=== PATIENT | male | born 1930 | race Caucasian/White ===

== ENCOUNTER → 2016-12-17 | Outpatient (CLI) | payer MEDICARE, MEDICAID ==
[~2016-12-17] MED LIST: ACETAMINOPHEN-1 EAC1 ORAL
--- NOTE | 2016-12-17 15:39 | Diagnostic Imaging Report ---
Indication: Vomiting, chest pain abdominal pain. Fever Technique: Continuous helical transaxial imaging of the chest, abdomen and pelvis was obtained from the lung bases to the pubic symphysis during intravenous contrast administration. Multiple phases of enhancement obtained. Coronal 2-D reformats were also obtained. Study obtained in a Siemens sensation [address] Total Dose length Product (DLP): [address] Dose Index Volume (CTDIvol): 2.15, 8.1, 81.1, 19, 16.3 mGy Comparison: None Findings: CT chest: Reticular densities are demonstrated at the lung bases. There is no consolidation, pleural or pericardial effusion identified. Hiatal hernia is present. No adenopathy is appreciated. Aorta shows some mural calcification. Axilla. Clear. CT abdomen pelvis: Small stones are probably present in the gallbladder. The liver is low in attenuation consistent with fatty infiltration. There are multiple cysts within the kidneys bilaterally. The largest single cyst is about 4 cm in the lower pole the left kidney. Normal appendix is demonstrated. There are diverticula throughout colon but concentrated within the sigmoid and descending colon. There are no definite inflammatory changes to suggest acute diverticulitis. No evidence of bowel obstruction, free fluid or free air. Urinary bladder is mostly nondistended. The prostate gland is enlarged measuring about 5 x 6 x 6 cm. Impression: No evidence of pneumonia. Basilar densities in the lungs likely atelectasis and/or scarring. Small gallstones suspected. Fatty liver Multiple bilateral renal cysts. Extensive diverticulosis of the colon. No definite evidence of acute diverticulitis. Prostate hypertrophy. The CT scanner at [facility] is accredited by the [employer] and the scans are performed using dose optimization techniques as appropriate to a performed exam including Automatic Exposure control.
== END | disposition home or self-care (01) ==
LOC: CAT 09:11
DX: R50.9 Fever, unspecified (principal); K52.9 Noninfective gastroenteritis and colitis, unspecified; R10.32 Left lower quadrant pain; K80.80 Other cholelithiasis without obstruction; K76.0 Fatty (change of) liver, not elsewhere classified; N28.1 Cyst of kidney, acquired; K57.90 Diverticulosis of intestine, part unspecified, without perforation or abscess without bleeding; N40.0 Benign prostatic hyperplasia without lower urinary tract symptoms
CPT/HCPCS: 71260; 74177; Q9967

== ENCOUNTER → 2017-06-16 | Outpatient (CLI) | payer MEDICARE, MEDICAID | END | disposition home or self-care (01) | LOC: MRI 09:01 | DX: M54.2 Cervicalgia (principal); M25.511 Pain in right shoulder; M25.521 Pain in right elbow ==

== ENCOUNTER 2017-12-29 11:59 | Inpatient (IN) | payer MEDICARE, MEDICAID ==
[~2017-12-29] VITALS: Ht 165.1 cm; Wt 75.1 kg
[2017-12-29 12:20] VITALS: BP 104/64
[2017-12-29] MEDS ORDERED: Pantoprazole 80 MG in NS 250 ML IV ONE (12:30)
[2017-12-29] MEDS ORDERED: Pantoprazole Inj IV ONE (12:30)
[2017-12-29 12:48] LABS: EOSINOPHILS % (AUTO) 2.7 % (0.0-3.0); HEMATOCRIT 41.2 % (42.0-52.0); LYMPHOCYTES % (AUTO) 28.6 % (20.0-45.0); MEAN CORPUSCULAR VOLUME 88 FL (80-99); MONOCYTES % (AUTO) 6.1 % (1.0-10.0); NEUTROPHILS % (AUTO) 61.6 % (45.0-75.0); PLATELET COUNT 225 K/UL (150-450); RED BLOOD COUNT 4.68 M/UL (4.70-6.10)
[2017-12-29 13:05] LABS: INR 1.2 (0.9-1.1)
[2017-12-29 13:08] LABS: ANION GAP 8 mmol/L (5-15); BLOOD UREA NITROGEN 19 mg/dL (7-18); CALCIUM 8.9 MG/DL (8.5-10.1); CARBON DIOXIDE 26 MMOL/L (21-32); CHLORIDE 107 MMOL/L (98-107); CREATININE 1.3 MG/DL (0.55-1.30); POTASSIUM 3.9 MMOL/L (3.5-5.1); SODIUM 141 MMOL/L (136-145)
[2017-12-29 13:22] LABS: ALANINE AMINOTRANSFERASE 22 U/L (12-78); ALBUMIN 3.8 G/DL (3.4-5.0); ALBUMIN/GLOBULIN RATIO 1.1 (1.0-2.7); ALKALINE PHOSPHATASE 60 U/L (46-116); ASPARTATE AMINO TRANSFERASE 17 U/L (15-37); BILIRUBIN,TOTAL 0.5 MG/DL (0.2-1.0); CKMB 2.7 NG/ML (0.0-3.6); CREATINE KINASE 123 U/L (26-308)
--- NOTE | 2017-12-29 13:29 | Emergency Room Report ---
History of Present Illness General Chief Complaint: Gastrointestinal Bleed Source: Patient, Medical Record Present Illness HPI This patient presents at the request of his primary care physician. The patient states that he has had black colored stool for the past one week. He states that the stool is been black daily. He states he had this one time previously about 6 years ago. He was diagnosed with a duodenal ulcer. He denies epigastric pain or abdominal pain. He denies chest pain or shortness of breath. He is on xeralto for a heart arrhythmia. He denies any other anticoagulation medications. He has no other complaints. Allergies: Coded Allergies: NO KNOWN ALLERGIES (Unverified Allergy, Unknown, 12/13/14) Patient History Past Medical History: see triage record, HTN, AFib Past Surgical History: none Social History: Denies: smoking, alcohol use, drug use Reviewed Nursing Documentation: PMH: Agreed; PSxH: Agreed Nursing Documentation-PMH Past Medical History: No History, Except For Hx Cardiac Problems: Yes - arrhythmia Hx Hypertension: Yes Review of Systems All Other Systems: negative except mentioned in HPI Physical Exam Vital Signs Date Time Temp Pulse Resp B/P (MAP) Pulse Ox O2 Delivery O2 Flow Rate FiO2 12/29/17 12:04 98.1 93 18 104/64 98 Room Air 98.1 Sp02 EP Interpretation: reviewed, normal General Appearance: no apparent distress, alert, GCS 15, non-toxic Head: normocephalic, atraumatic Eyes: bilateral eye normal inspection, bilateral eye PERRL ENT: hearing grossly normal, normal pharynx, no angioedema, normal voice Neck: full range of motion, supple/symm/no masses Respiratory: chest non-tender, lungs clear, normal breath sounds, no respiratory distress, no retraction, no accessory muscle use, speaking full sentences Cardiovascular #1: regular rate, rhythm, no edema Gastrointestinal: normal bowel sounds, non tender, soft, non-distended, no guarding, no rebound Rectal: deferred Musculoskeletal: back normal, gait/station normal, normal range of motion, non- tender Neurologic: alert, oriented x3, responsive, motor strength/tone normal, sensory intact, speech normal Psychiatric: judgement/insight normal, memory normal, mood/affect normal, no suicidal/homicidal ideation Skin: normal color, no rash, warm/dry, well hydrated Medical Decision Making Diagnostic Impression: Primary Impression: UGI bleed Additional Impression: Melena ER Course This patient has melena and a history of a duodenal ulcer and upper GI bleed. He is also on xeralto and therefore coagulopathic. The patient's lab workup is normal without anemia. As a precaution, this patient is admitted for further evaluation by gastroenterology for concern that he is on xeralto and has a possible recent GI bleed and he could decompensate rapidly. The patient was given a Protonix bolus IV and started on a Protonix drip and admitted to telemetry. Laboratory Tests Test 12/29/17 12:18 12/29/17 13:25 White Blood Count 6.0 K/UL (4.8-10.8) Red Blood Count 4.68 M/UL (4.70-6.10) L Hemoglobin 14.0 G/DL (14.2-18.0) L Hematocrit 41.2 % (42.0-52.0) L Mean Corpuscular Volume 88 FL (80-99) Mean Corpuscular Hemoglobin 29.9 PG (27.0-31.0) Mean Corpuscular Hemoglobin Concent 33.9 G/DL (32.0-36.0) Red Cell Distribution Width 11.0 % (11.6-14.8) L Platelet Count 225 K/UL (150-450) Mean Platelet Volume 5.8 FL (6.5-10.1) L Neutrophils (%) (Auto) 61.6 % (45.0-75.0) Lymphocytes (%) (Auto) 28.6 % (20.0-45.0) Monocytes (%) (Auto) 6.1 % (1.0-10.0) Eosinophils (%) (Auto) 2.7 % (0.0-3.0) Basophils (%) (Auto) 1.0 % (0.0-2.0) Prothrombin Time 12.5 SEC (9.30-11.50) H Prothrombin Time INR 1.2 (0.9-1.1) H PTT 32 SEC (23-33) Sodium Level 141 MMOL/L (136-145) Potassium Level 3.9 MMOL/L (3.5-5.1) Chloride Level 107 MMOL/L (98-107) Carbon Dioxide Level 26 MMOL/L (21-32) Anion Gap 8 mmol/L (5-15) Blood Urea Nitrogen 19 mg/dL (7-18) H Creatinine 1.3 MG/DL (0.55-1.30) Estimate Glomerular Filtration Rate mL/min (>60) Glucose Level 150 MG/DL (74-106) H Calcium Level 8.9 MG/DL (8.5-10.1) Total Bilirubin 0.5 MG/DL (0.2-1.0) Aspartate Amino Transferase (AST) 17 U/L (15-37) Alanine Aminotransferase (ALT) 22 U/L (12-78) Alkaline Phosphatase 60 U/L (46-116) Total Creatine Kinase 123 U/L (26-308) Creatine Kinase MB 2.7 NG/ML (0.0-3.6) Creatine Kinase MB Relative Index 2.1 Troponin I 0.017 ng/mL (0.000-0.056) Total Protein 7.2 G/DL (6.4-8.2) Albumin 3.8 G/DL (3.4-5.0) Globulin 3.4 g/dL Albumin/Globulin Ratio 1.1 (1.0-2.7) Lipase 153 U/L (73-393) Urine Color Pending Urine Appearance Pending Urine pH Pending Urine Specific [place] Pending Urine Protein Pending Urine Glucose (UA) Pending Urine Ketones Pending Urine Blood Pending Urine Nitrite Pending Urine Bilirubin Pending Urine Urobilinogen Pending Urine Leukocyte Esterase Pending EKG Diagnostic Results Rate: normal Rhythm: other - A.fib ST Segments: no acute changes Rhythm Strip Diag. Results EP Interpretation: yes Rate: 80's Rhythm: no PVC's, no ectopy, other - A.fib Last Vital Signs Date Time Temp Pulse Resp B/P (MAP) Pulse Ox O2 Delivery O2 Flow Rate FiO2 12/29/17 12:20 98.1 18 104/64 98 Room Air 98.1 12/29/17 12:04 93 Disposition: ADMITTED INPATIENT Condition: Serious Referrals: RASHIDA STALLINGS (PCP) Odalis Munoz DO Dec 29, 2017 13:29
[2017-12-29 13:59] LABS: APPEARANCE,URINE CLEAR; BILIRUBIN, URINE NEGATIVE (NEGATIVE); COLOR,URINE PALE YELLOW; GLUCOSE, URINE (UA) NEGATIVE (NEGATIVE); KETONES,URINE NEGATIVE (NEGATIVE); LEUKOCYTE ESTERASE ,URINE 1+ (NEGATIVE); NITRITE,URINE NEGATIVE (NEGATIVE); PH,URINE 5 (4.5-8.0); PROTEIN,URINE NEGATIVE (NEGATIVE); UROBILINOGEN,URINE NORMAL MG/DL (0.0-1.0)
[2017-12-29] MEDS ORDERED: XARELTO10 MG ORAL ×2 (14:27→18:07)
[2017-12-29] MEDS ORDERED: BPH MED ORAL (14:27)
[2017-12-29] MEDS ORDERED: BYSTOLIC2.5 MG ORAL (14:27)
--- NOTE | 2017-12-29 14:48 | History and Physical ---
History of Present Illness General Date patient seen: Dec 29, 2017 Reason for Hospitalization: Gastrointestinal Bleed Present Illness HPI 87 year old male with hx of Afib, on chronic anticoagulation presented to ER at the request of his primary care physician. The patient states that he has had black colored stool for the past one week. He states that the stool is been black daily. He states he had this one time previously about 6 years ago. He was diagnosed with a duodenal ulcer. He denies epigastric pain or abdominal pain. He denies chest pain or shortness of breath. Pt is admitted to telemetry for further management. Allergies: Coded Allergies: NO KNOWN ALLERGIES (Unverified Allergy, Unknown, 12/13/14) Medication History Scheduled Nebivolol Hcl* (Bystolic*), Unknown Dose ORAL DAILY, (Reported) Rivaroxaban (Xarelto*), Unknown Dose ORAL DAILY, (Reported) Rivaroxaban (Xarelto*), 15 MG ORAL DAILY, (Reported) [BPH med], ORAL DAILY, (Reported) Scheduled PRN Acetaminophen With Codeine (T#3) (Tylenol #3 Tab*), 1 TAB ORAL Q8H PRN for For Pain Patient History Healthcare decision maker Resuscitation status Advanced Directive on File Past Medical/Surgical History Past Medical/Surgical History: (1) Arrhythmia (2) Chronic anticoagulation (3) UGI bleed Review of Systems All Other Systems: negative except mentioned in HPI Physical Exam General Appearance: WD/WN Lines, tubes and drains: peripheral HEENT: normocephalic, atraumatic Neck: non-tender, normal alignment Respiratory/Chest: chest wall non-tender, lungs clear Breasts: no masses Cardiovascular/Chest: normal peripheral pulses, normal rate Abdomen: normal bowel sounds, non tender Genitourinary/Rectal: normal genital exam Extremities: normal range of motion, normal inspection Skin Exam: normal pigmentation 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 Last 24 Hour Vital Signs Date Time Temp Pulse Resp B/P (MAP) Pulse Ox O2 Delivery O2 Flow Rate FiO2 12/29/17 12:20 98.1 18 104/64 98 Room Air 98.1 12/29/17 12:04 98.1 93 18 104/64 98 Room Air 98.1 Laboratory Tests Test 12/29/17 12:18 12/29/17 13:25 White Blood Count 6.0 K/UL (4.8-10.8) Red Blood Count 4.68 M/UL (4.70-6.10) L Hemoglobin 14.0 G/DL (14.2-18.0) L Hematocrit 41.2 % (42.0-52.0) L Mean Corpuscular Volume 88 FL (80-99) Mean Corpuscular Hemoglobin 29.9 PG (27.0-31.0) Mean Corpuscular Hemoglobin Concent 33.9 G/DL (32.0-36.0) Red Cell Distribution Width 11.0 % (11.6-14.8) L Platelet Count 225 K/UL (150-450) Mean Platelet Volume 5.8 FL (6.5-10.1) L Neutrophils (%) (Auto) 61.6 % (45.0-75.0) Lymphocytes (%) (Auto) 28.6 % (20.0-45.0) Monocytes (%) (Auto) 6.1 % (1.0-10.0) Eosinophils (%) (Auto) 2.7 % (0.0-3.0) Basophils (%) (Auto) 1.0 % (0.0-2.0) Prothrombin Time 12.5 SEC (9.30-11.50) H Prothromb Time International Ratio 1.2 (0.9-1.1) H Activated Partial Thromboplast Time 32 SEC (23-33) Sodium Level 141 MMOL/L (136-145) Potassium Level 3.9 MMOL/L (3.5-5.1) Chloride Level 107 MMOL/L (98-107) Carbon Dioxide Level 26 MMOL/L (21-32) Anion Gap 8 mmol/L (5-15) Blood Urea Nitrogen 19 mg/dL (7-18) H Creatinine 1.3 MG/DL (0.55-1.30) Estimat Glomerular Filtration Rate mL/min (>60) Glucose Level 150 MG/DL (74-106) H Calcium Level 8.9 MG/DL (8.5-10.1) Total Bilirubin 0.5 MG/DL (0.2-1.0) Aspartate Amino Transf (AST/SGOT) 17 U/L (15-37) Alanine Aminotransferase (ALT/SGPT) 22 U/L (12-78) Alkaline Phosphatase 60 U/L (46-116) Total Creatine Kinase 123 U/L (26-308) Creatine Kinase MB 2.7 NG/ML (0.0-3.6) Creatine Kinase MB Relative Index 2.1 Troponin I 0.017 ng/mL (0.000-0.056) Total Protein 7.2 G/DL (6.4-8.2) Albumin 3.8 G/DL (3.4-5.0) Globulin 3.4 g/dL Albumin/Globulin Ratio 1.1 (1.0-2.7) Lipase 153 U/L (73-393) Urine Color Pale yellow Urine Appearance Clear Urine pH 5 (4.5-8.0) Urine Specific [place] 1.015 (1.005-1.035) Urine Protein Negative (NEGATIVE) Urine Glucose (UA) Negative (NEGATIVE) Urine Ketones Negative (NEGATIVE) Urine Blood 1+ (NEGATIVE) H Urine Nitrite Negative (NEGATIVE) Urine Bilirubin Negative (NEGATIVE) Urine Urobilinogen Normal MG/DL (0.0-1.0) Urine Leukocyte Esterase 1+ (NEGATIVE) H Urine RBC 2-4 /HPF (0 - 0) H Urine WBC 2-4 /HPF (0 - 0) Urine Squamous Epithelial Cells Occasional /LPF Urine Bacteria Occasional /HPF (NONE) Height (Feet): 5 Height (Inches): 5.00 Weight (Pounds): 165 Medications Current Medications Medications (Trade) Dose Ordered Sig/Raisa Route PRN Reason Start Time Stop Time Status Last Admin Dose Admin Pantoprazole 80 mg/Sodium Chloride 250 ml @ 25 mls/hr Q10H ONCE IV 12/29/17 12:30 12/29/17 22:29 12/29/17 12:41 Assessment/Plan Problem List: (1) Melena ICD Codes: K92.1 - Melena SNOMED: 7768474 (2) Chronic anticoagulation ICD Codes: Z79.01 - M[facility] (current) use of anticoagulants SNOMED: 055022265 (3) Arrhythmia ICD Codes: I49.9 - Cardiac arrhythmia, unspecified SNOMED: 983141247 Assessment/Plan NPO GI evaluation Vitamin K and Amicar check pt/ptt He blockers dvt prophylaxis. Jordy Springer MD Dec 29, 2017 14:48
[2017-12-29] MEDS ORDERED: Nitroglycerin Subl 0.4mg tab SL PRN (15:02)
[2017-12-29] MEDS ORDERED: Mylanta II UD 30ml ORAL PRN (15:02)
[2017-12-29] MEDS ORDERED: Morphine Sulfate 2mg/ml Inj IVP PRN (15:03)
[2017-12-29] MEDS: D5NS 1,000 ML IV SCH (15:35)
[2017-12-29 16:00] VITALS: BP 104/69
[2017-12-29] MEDS ORDERED: Phytonadione 10 MG in D5W 55 ML IVPB ONE (16:00)
[2017-12-29] MEDS ORDERED: Aminocaproic Acid Inj 5,000 MG in NS 110 ML IV ONE (16:30)
[2017-12-29 19:55] VITALS: BP 103/72
--- NOTE | 2017-12-29 21:29 | Consultation ---
History of Present Illness General Date patient seen: Dec 29, 2017 Chief Complaint: Gastrointestinal Bleed Present Illness HPI 87 year old male presents with black tarry stool, hx of GI bleed six years ago from duodenal ulcer. hx of AFIB on xarelto, rate controlled with bystolic. No chest pain or shortness of breath Allergies: Coded Allergies: NO KNOWN ALLERGIES (Unverified Allergy, Unknown, 12/13/14) Medication History Scheduled Nebivolol Hcl* (Bystolic*), Unknown Dose ORAL DAILY, (Reported) Rivaroxaban (Xarelto*), Unknown Dose ORAL DAILY, (Reported) Rivaroxaban (Xarelto*), 15 MG ORAL DAILY, (Reported) [BPH med], ORAL DAILY, (Reported) Scheduled PRN Acetaminophen With Codeine (T#3) (Tylenol #3 Tab*), 1 TAB ORAL Q8H PRN for For Pain Patient History Healthcare decision maker Resuscitation status Full Code Advanced Directive on File Review of Systems Constitutional: Reports: no symptoms Eye: Reports: no symptoms ENT: Reports: no symptoms Respiratory: Reports: no symptoms Cardiovascular: Reports: no symptoms Gastrointestinal: Reports: melena Genitourinary: Reports: no symptoms Musculoskeletal: Reports: no symptoms Skin: Reports: no symptoms Psychiatric: Reports: no symptoms Neurological: Reports: no symptoms Endocrine: Reports: no symptoms Hematologic/Lymphatic: Reports: no symptoms Physical Exam General Appearance: no apparent distress, alert Lines, tubes and drains: peripheral HEENT: normocephalic, atraumatic Neck: non-tender, normal alignment, supple Respiratory/Chest: chest wall non-tender, lungs clear Cardiovascular/Chest: normal peripheral pulses, normal rate, arrhythmia Abdomen: normal bowel sounds, non tender Extremities: normal range of motion, non-tender Skin Exam: normal pigmentation 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, no motor/sensory deficits Last 24 Hour Vital Signs Date Time Temp Pulse Resp B/P (MAP) Pulse Ox O2 Delivery O2 Flow Rate FiO2 12/29/17 19:55 98.4 97 17 103/72 (82) 96 98.4 12/29/17 16:00 87 12/29/17 16:00 98.2 91 20 104/69 (81) 95 98.2 12/29/17 15:13 Room Air 12/29/17 14:45 98.1 18 109/72 98 Room Air 98.1 12/29/17 12:20 98.1 18 104/64 98 Room Air 98.1 12/29/17 12:04 98.1 93 18 104/64 98 Room Air 98.1 Laboratory Tests Test 12/29/17 12:18 12/29/17 13:25 White Blood Count 6.0 K/UL (4.8-10.8) Red Blood Count 4.68 M/UL (4.70-6.10) L Hemoglobin 14.0 G/DL (14.2-18.0) L Hematocrit 41.2 % (42.0-52.0) L Mean Corpuscular Volume 88 FL (80-99) Mean Corpuscular Hemoglobin 29.9 PG (27.0-31.0) Mean Corpuscular Hemoglobin Concent 33.9 G/DL (32.0-36.0) Red Cell Distribution Width 11.0 % (11.6-14.8) L Platelet Count 225 K/UL (150-450) Mean Platelet Volume 5.8 FL (6.5-10.1) L Neutrophils (%) (Auto) 61.6 % (45.0-75.0) Lymphocytes (%) (Auto) 28.6 % (20.0-45.0) Monocytes (%) (Auto) 6.1 % (1.0-10.0) Eosinophils (%) (Auto) 2.7 % (0.0-3.0) Basophils (%) (Auto) 1.0 % (0.0-2.0) Prothrombin Time 12.5 SEC (9.30-11.50) H Prothromb Time International Ratio 1.2 (0.9-1.1) H Activated Partial Thromboplast Time 32 SEC (23-33) Sodium Level 141 MMOL/L (136-145) Potassium Level 3.9 MMOL/L (3.5-5.1) Chloride Level 107 MMOL/L (98-107) Carbon Dioxide Level 26 MMOL/L (21-32) Anion Gap 8 mmol/L (5-15) Blood Urea Nitrogen 19 mg/dL (7-18) H Creatinine 1.3 MG/DL (0.55-1.30) Estimat Glomerular Filtration Rate mL/min (>60) Glucose Level 150 MG/DL (74-106) H Calcium Level 8.9 MG/DL (8.5-10.1) Total Bilirubin 0.5 MG/DL (0.2-1.0) Aspartate Amino Transf (AST/SGOT) 17 U/L (15-37) Alanine Aminotransferase (ALT/SGPT) 22 U/L (12-78) Alkaline Phosphatase 60 U/L (46-116) Total Creatine Kinase 123 U/L (26-308) Creatine Kinase MB 2.7 NG/ML (0.0-3.6) Creatine Kinase MB Relative Index 2.1 Troponin I 0.017 ng/mL (0.000-0.056) Total Protein 7.2 G/DL (6.4-8.2) Albumin 3.8 G/DL (3.4-5.0) Globulin 3.4 g/dL Albumin/Globulin Ratio 1.1 (1.0-2.7) Lipase 153 U/L (73-393) Urine Color Pale yellow Urine Appearance Clear Urine pH 5 (4.5-8.0) Urine Specific [place] 1.015 (1.005-1.035) Urine Protein Negative (NEGATIVE) Urine Glucose (UA) Negative (NEGATIVE) Urine Ketones Negative (NEGATIVE) Urine Blood 1+ (NEGATIVE) H Urine Nitrite Negative (NEGATIVE) Urine Bilirubin Negative (NEGATIVE) Urine Urobilinogen Normal MG/DL (0.0-1.0) Urine Leukocyte Esterase 1+ (NEGATIVE) H Urine RBC 2-4 /HPF (0 - 0) H Urine WBC 2-4 /HPF (0 - 0) Urine Squamous Epithelial Cells Occasional /LPF Urine Bacteria Occasional /HPF (NONE) Height (Feet): 5 Height (Inches): 5.00 Weight (Pounds): 165 Medications Current Medications Medications (Trade) Dose Ordered Sig/Raisa Route PRN Reason Start Time Stop Time Status Last Admin Dose Admin Acetaminophen (Tylenol) 650 mg Q4H PRN ORAL fever 12/29/17 15:01 01/28/18 15:00 Al Hydroxide/Mg Hydroxide (Mylanta II) 30 ml Q6H PRN ORAL dyspepsia 12/29/17 15:02 01/28/18 15:01 Dextrose (Dextrose 50%) 25 ml Q30M PRN IV Hypoglycemia 12/29/17 15:02 01/28/18 15:01 Dextrose (Dextrose 50%) 50 ml Q30M PRN IV Hypoglycemia 12/29/17 15:02 01/28/18 15:01 Dextrose/Sodium Chloride 1,000 ml @ 100 mls/hr Q10H IV 12/29/17 15:00 01/28/18 14:59 12/29/17 15:35 Diphenhydramine HCl (Benadryl) 25 mg Q6H PRN ORAL Itching/Pruritis 12/29/17 15:02 01/28/18 15:01 Morphine Sulfate (Morphine Sulfate) 2 mg Q4H PRN IVP severe Pain (Pain Scale 7-10) 12/29/17 15:03 01/05/18 15:02 Nitroglycerin (Ntg) 0.4 mg Q5M X 3 DOSES PRN SL Prn Chest Pain 12/29/17 15:02 01/28/18 15:01 Ondansetron HCl (Zofran) 4 mg Q6H PRN IVP Nausea & Vomiting 12/29/17 15:01 01/28/18 15:00 Pantoprazole 80 mg/Sodium Chloride 250 ml @ 25 mls/hr Q10H ONCE IV 12/29/17 12:30 12/29/17 22:29 12/29/17 12:41 Temazepam (Restoril) 15 mg HSPRN PRN ORAL Insomnia 12/29/17 21:00 01/05/18 20:59 Assessment/Plan Status: stable Assessment/Plan Assessment AFIB Melena Duodenal Ulcer Plan Hold xarelto Telemetry Serial neuro exam while off xarelto Defer cath/stress test GI consult for colonoscopy Stool for FOBT Serial H/H Shane Blum MD Dec 29, 2017 21:29
[2017-12-29 23:50] VITALS: BP 100/69
[2017-12-30] MEDS: D5NS 1,000 ML IV SCH (01:13)
[2017-12-30 04:12] VITALS: BP 92/54
[2017-12-30 07:26] LABS: BASOPHILS % (AUTO) 0.9 % (0.0-2.0); EOSINOPHILS % (AUTO) 6.6 % (0.0-3.0); HEMATOCRIT 31.2 % (42.0-52.0); HEMOGLOBIN 11.1 G/DL (14.2-18.0); MEAN CORPUSCULAR VOLUME 88 FL (80-99); NEUTROPHILS % (AUTO) 51.6 % (45.0-75.0); PLATELET COUNT 166 K/UL (150-450); RED BLOOD COUNT 3.53 M/UL (4.70-6.10); RED CELL DISTRIBUTION WIDTH 11.2 % (11.6-14.8); WHITE BLOOD COUNT 4.8 K/UL (4.8-10.8)
[2017-12-30 07:37] LABS: ALANINE AMINOTRANSFERASE 20 U/L (12-78); ALBUMIN 2.8 G/DL (3.4-5.0); ALBUMIN/GLOBULIN RATIO 1.1 (1.0-2.7); ALKALINE PHOSPHATASE 39 U/L (46-116); AMYLASE 32 U/L (25-115); ANION GAP 7 mmol/L (5-15); ASPARTATE AMINO TRANSFERASE 13 U/L (15-37); BILIRUBIN,TOTAL 0.6 MG/DL (0.2-1.0); BLOOD UREA NITROGEN 20 mg/dL (7-18); CARBON DIOXIDE 23 MMOL/L (21-32); CHLORIDE 112 MMOL/L (98-107); CREATININE 1.2 MG/DL (0.55-1.30); SODIUM 142 MMOL/L (136-145)
[2017-12-30 07:45] LABS: INR 1.1 (0.9-1.1)
[2017-12-30 08:00] VITALS: BP 108/66
--- NOTE | 2017-12-30 10:58 | Pulmonology Progress Note ---
Assessment/Plan Problems: (1) Melena (2) Chronic anticoagulation (3) Arrhythmia Assessment/Plan decrease IV fluids Cardio note appreciated GI evaluation h2 blockers prbc prn Subjective ROS Limited/Unobtainable: No Constitutional: Reports: no symptoms HEENT: Repors: no symptoms Respiratory: Reports: no symptoms Cardiovascular: Reports: no symptoms Allergies: Coded Allergies: NO KNOWN ALLERGIES (Unverified Allergy, Unknown, 12/13/14) Objective Last 24 Hour Vital Signs Date Time Temp Pulse Resp B/P (MAP) Pulse Ox O2 Delivery O2 Flow Rate FiO2 12/30/17 09:00 Room Air 12/30/17 08:00 97.0 75 20 108/66 (80) 94 97.0 12/30/17 04:12 98.2 78 17 92/54 (67) 96 98.2 12/29/17 23:50 98.2 101 17 100/69 (79) 96 98.2 12/29/17 21:37 Room Air 12/29/17 19:55 98.4 97 17 103/72 (82) 96 98.4 12/29/17 16:00 87 12/29/17 16:00 98.2 91 20 104/69 (81) 95 98.2 12/29/17 15:13 Room Air 12/29/17 14:45 98.1 18 109/72 98 Room Air 98.1 12/29/17 12:20 98.1 18 104/64 98 Room Air 98.1 12/29/17 12:04 98.1 93 18 104/64 98 Room Air 98.1 Intake and Output 12/29/17 12/30/17 19:00 07:00 Intake Total 300 ml 900 ml Balance 300 ml 900 ml Intake Oral 0 ml IV Total 300 ml 900 ml # Voids 1 2 General Appearance: WD/WN HEENT: normocephalic, atraumatic Respiratory/Chest: chest wall non-tender, lungs clear Cardiovascular: normal peripheral pulses, normal rate Abdomen: normal bowel sounds, no organomegaly Extremities: no cyanosis 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 Laboratory Tests 12/29/17 12:18: White Blood Count 6.0, Red Blood Count 4.68L, Hemoglobin 14.0L, Hematocrit 41.2L , Mean Corpuscular Volume 88, Mean Corpuscular Hemoglobin 29.9, Mean Corpuscular Hemoglobin Concent 33.9, Red Cell Distribution Width 11.0L, Platelet Count 225, Mean Platelet Volume 5.8L, Neutrophils (%) (Auto) 61.6, Lymphocytes (%) (Auto) 28.6, Monocytes (%) (Auto) 6.1, Eosinophils (%) (Auto) 2.7, Basophils (%) (Auto) 1.0, Prothrombin Time 12.5H, Prothromb Time International Ratio 1.2H, Activated Partial Thromboplast Time 32, Sodium Level 141, Potassium Level 3.9, Chloride Level 107, Carbon Dioxide Level 26, Anion Gap 8, Blood Urea Nitrogen 19H, Creatinine 1.3, Estimat Glomerular Filtration Rate , Glucose Level 150H, Calcium Level 8.9, Total Bilirubin 0.5, Aspartate Amino Transf (AST/SGOT) 17, Alanine Aminotransferase (ALT/SGPT) 22, Alkaline Phosphatase 60, Total Creatine Kinase 123, Creatine Kinase MB 2.7, Creatine Kinase MB Relative Index 2.1, Troponin I 0.017, Total Protein 7.2, Albumin 3.8, Globulin 3.4, Albumin/Globulin Ratio 1.1, Lipase 153 12/29/17 13:25: Urine Color Pale yellow, Urine Appearance Clear, Urine pH 5, Urine Specific [place] 1.015, Urine Protein Negative, Urine Glucose (UA) Negative, Urine Ketones Negative, Urine Blood 1+H, Urine Nitrite Negative, Urine Bilirubin Negative, Urine Urobilinogen Normal, Urine Leukocyte Esterase 1+H, Urine RBC 2- 4H, Urine WBC 2-4, Urine Squamous Epithelial Cells Occasional, Urine Bacteria Occasional 12/30/17 06:20: White Blood Count 4.8, Red Blood Count 3.53L, Hemoglobin 11.1L, Hematocrit 31.2L , Mean Corpuscular Volume 88, Mean Corpuscular Hemoglobin 31.4H, Mean Corpuscular Hemoglobin Concent 35.6, Red Cell Distribution Width 11.2L, Platelet Count 166, Mean Platelet Volume 5.8L, Neutrophils (%) (Auto) 51.6, Lymphocytes (%) (Auto) 33.0, Monocytes (%) (Auto) 8.0, Eosinophils (%) (Auto) 6.6H, Basophils (%) (Auto) 0.9, Prothrombin Time 11.5, Prothromb Time International Ratio 1.1, Activated Partial Thromboplast Time 28, Sodium Level 142, Potassium Level 4.0, Chloride Level 112H, Carbon Dioxide Level 23, Anion Gap 7, Blood Urea Nitrogen 20H, Creatinine 1.2, Estimat Glomerular Filtration Rate , Glucose Level 124H, Calcium Level 8.0L, Total Bilirubin 0.6, Aspartate Amino Transf (AST/SGOT) 13L, Alanine Aminotransferase (ALT/SGPT) 20, Alkaline Phosphatase 39L, Total Protein 5.4L, Albumin 2.8L, Globulin 2.6, Albumin/ Globulin Ratio 1.1, Lipase 98, Amylase Level 32 Current Medications Medications (Trade) Dose Ordered Sig/Raisa Route PRN Reason Start Time Stop Time Status Last Admin Dose Admin Acetaminophen (Tylenol) 650 mg Q4H PRN ORAL fever 12/29/17 15:01 01/28/18 15:00 Al Hydroxide/Mg Hydroxide (Mylanta II) 30 ml Q6H PRN ORAL dyspepsia 12/29/17 15:02 01/28/18 15:01 Dextrose (Dextrose 50%) 25 ml Q30M PRN IV Hypoglycemia 12/29/17 15:02 01/28/18 15:01 Dextrose (Dextrose 50%) 50 ml Q30M PRN IV Hypoglycemia 12/29/17 15:02 01/28/18 15:01 Dextrose/Sodium Chloride 1,000 ml @ 100 mls/hr Q10H IV 12/29/17 15:00 01/28/18 14:59 12/30/17 01:13 Diphenhydramine HCl (Benadryl) 25 mg Q6H PRN ORAL Itching/Pruritis 12/29/17 15:02 01/28/18 15:01 Morphine Sulfate (Morphine Sulfate) 2 mg Q4H PRN IVP severe Pain (Pain Scale 7-10) 12/29/17 15:03 01/05/18 15:02 Nitroglycerin (Ntg) 0.4 mg Q5M X 3 DOSES PRN SL Prn Chest Pain 12/29/17 15:02 01/28/18 15:01 Ondansetron HCl (Zofran) 4 mg Q6H PRN IVP Nausea & Vomiting 12/29/17 15:01 01/28/18 15:00 Temazepam (Restoril) 15 mg HSPRN PRN ORAL Insomnia 12/29/17 21:00 01/05/18 20:59 Jordy Springer MD Dec 30, 2017 10:57
[2017-12-30] MEDS ORDERED: D5NS 1,000 ML IV SCH ×2 (11:00→18:00)
--- NOTE | 2017-12-30 11:52 | Consultation ---
History of Present Illness General Date patient seen: Dec 29, 2017 Chief Complaint: Gastrointestinal Bleed Present Illness HPI the patient is an 87 yo presents with black colored stool for the past one week. the pt has hx of anxiety d/o and insomnia. the pt has cognitive impairment. he was able to answer the question and participated in evaluation. the pt has been on Restoril outside of the hospital Allergies: Coded Allergies: NO KNOWN ALLERGIES (Unverified Allergy, Unknown, 12/13/14) Medication History Scheduled Nebivolol Hcl* (Bystolic*), Unknown Dose ORAL DAILY, (Reported) Rivaroxaban (Xarelto*), Unknown Dose ORAL DAILY, (Reported) Rivaroxaban (Xarelto*), 15 MG ORAL DAILY, (Reported) [BPH med], ORAL DAILY, (Reported) Scheduled PRN Acetaminophen With Codeine (T#3) (Tylenol #3 Tab*), 1 TAB ORAL Q8H PRN for For Pain Patient History Limited by: medical condition History Provided By: Patient, Medical Record Healthcare decision maker Resuscitation status Full Code Advanced Directive on File Past Medical/Surgical History Past Medical/Surgical History: (1) Contusion, shoulder /upper arm (2) Contusion, shoulder /upper arm (3) Chest wall contusion (4) Melena (5) Arrhythmia (6) UGI bleed (7) Chronic anticoagulation Family History Family History: (1) Melena (2) Arrhythmia (3) UGI bleed (4) Chronic anticoagulation (5) Contusion, shoulder /upper arm (6) Contusion, shoulder /upper arm (7) Chest wall contusion Review of Systems Psychiatric: Reports: anxiety, emotional problems Physical Exam General Appearance: no apparent distress, alert Neurologic: oriented x 3, responsive, depressed affect Last 24 Hour Vital Signs Date Time Temp Pulse Resp B/P (MAP) Pulse Ox O2 Delivery O2 Flow Rate FiO2 12/30/17 09:00 Room Air 12/30/17 08:00 97.0 75 20 108/66 (80) 94 97.0 12/30/17 04:12 98.2 78 17 92/54 (67) 96 98.2 12/29/17 23:50 98.2 101 17 100/69 (79) 96 98.2 12/29/17 21:37 Room Air 12/29/17 19:55 98.4 97 17 103/72 (82) 96 98.4 12/29/17 16:00 87 12/29/17 16:00 98.2 91 20 104/69 (81) 95 98.2 12/29/17 15:13 Room Air 12/29/17 14:45 98.1 18 109/72 98 Room Air 98.1 12/29/17 12:20 98.1 18 104/64 98 Room Air 98.1 12/29/17 12:04 98.1 93 18 104/64 98 Room Air 98.1 Intake and Output 12/29/17 12/30/17 19:00 07:00 Intake Total 300 ml 900 ml Balance 300 ml 900 ml Intake Oral 0 ml IV Total 300 ml 900 ml # Voids 1 2 Laboratory Tests Test 12/29/17 12:18 12/29/17 13:25 12/30/17 06:20 White Blood Count 6.0 K/UL (4.8-10.8) 4.8 K/UL (4.8-10.8) Red Blood Count 4.68 M/UL (4.70-6.10) L 3.53 M/UL (4.70-6.10) L Hemoglobin 14.0 G/DL (14.2-18.0) L 11.1 G/DL (14.2-18.0) L Hematocrit 41.2 % (42.0-52.0) L 31.2 % (42.0-52.0) L Mean Corpuscular Volume 88 FL (80-99) 88 FL (80-99) Mean Corpuscular Hemoglobin 29.9 PG (27.0-31.0) 31.4 PG (27.0-31.0) H Mean Corpuscular Hemoglobin Concent 33.9 G/DL (32.0-36.0) 35.6 G/DL (32.0-36.0) Red Cell Distribution Width 11.0 % (11.6-14.8) L 11.2 % (11.6-14.8) L Platelet Count 225 K/UL (150-450) 166 K/UL (150-450) Mean Platelet Volume 5.8 FL (6.5-10.1) L 5.8 FL (6.5-10.1) L Neutrophils (%) (Auto) 61.6 % (45.0-75.0) 51.6 % (45.0-75.0) Lymphocytes (%) (Auto) 28.6 % (20.0-45.0) 33.0 % (20.0-45.0) Monocytes (%) (Auto) 6.1 % (1.0-10.0) 8.0 % (1.0-10.0) Eosinophils (%) (Auto) 2.7 % (0.0-3.0) 6.6 % (0.0-3.0) H Basophils (%) (Auto) 1.0 % (0.0-2.0) 0.9 % (0.0-2.0) Prothrombin Time 12.5 SEC (9.30-11.50) H 11.5 SEC (9.30-11.50) Prothromb Time International Ratio 1.2 (0.9-1.1) H 1.1 (0.9-1.1) Activated Partial Thromboplast Time 32 SEC (23-33) 28 SEC (23-33) Sodium Level 141 MMOL/L (136-145) 142 MMOL/L (136-145) Potassium Level 3.9 MMOL/L (3.5-5.1) 4.0 MMOL/L (3.5-5.1) Chloride Level 107 MMOL/L (98-107) 112 MMOL/L (98-107) H Carbon Dioxide Level 26 MMOL/L (21-32) 23 MMOL/L (21-32) Anion Gap 8 mmol/L (5-15) 7 mmol/L (5-15) Blood Urea Nitrogen 19 mg/dL (7-18) H 20 mg/dL (7-18) H Creatinine 1.3 MG/DL (0.55-1.30) 1.2 MG/DL (0.55-1.30) Estimat Glomerular Filtration Rate mL/min (>60) mL/min (>60) Glucose Level 150 MG/DL (74-106) H 124 MG/DL (74-106) H Calcium Level 8.9 MG/DL (8.5-10.1) 8.0 MG/DL (8.5-10.1) L Total Bilirubin 0.5 MG/DL (0.2-1.0) 0.6 MG/DL (0.2-1.0) Aspartate Amino Transf (AST/SGOT) 17 U/L (15-37) 13 U/L (15-37) L Alanine Aminotransferase (ALT/SGPT) 22 U/L (12-78) 20 U/L (12-78) Alkaline Phosphatase 60 U/L (46-116) 39 U/L (46-116) L Total Creatine Kinase 123 U/L (26-308) Creatine Kinase MB 2.7 NG/ML (0.0-3.6) Creatine Kinase MB Relative Index 2.1 Troponin I 0.017 ng/mL (0.000-0.056) Total Protein 7.2 G/DL (6.4-8.2) 5.4 G/DL (6.4-8.2) L Albumin 3.8 G/DL (3.4-5.0) 2.8 G/DL (3.4-5.0) L Globulin 3.4 g/dL 2.6 g/dL Albumin/Globulin Ratio 1.1 (1.0-2.7) 1.1 (1.0-2.7) Lipase 153 U/L (73-393) 98 U/L (73-393) Urine Color Pale yellow Urine Appearance Clear Urine pH 5 (4.5-8.0) Urine Specific [place] 1.015 (1.005-1.035) Urine Protein Negative (NEGATIVE) Urine Glucose (UA) Negative (NEGATIVE) Urine Ketones Negative (NEGATIVE) Urine Blood 1+ (NEGATIVE) H Urine Nitrite Negative (NEGATIVE) Urine Bilirubin Negative (NEGATIVE) Urine Urobilinogen Normal MG/DL (0.0-1.0) Urine Leukocyte Esterase 1+ (NEGATIVE) H Urine RBC 2-4 /HPF (0 - 0) H Urine WBC 2-4 /HPF (0 - 0) Urine Squamous Epithelial Cells Occasional /LPF Urine Bacteria Occasional /HPF (NONE) Amylase Level 32 U/L (25-115) Height (Feet): 5 Height (Inches): 5.00 Weight (Pounds): 165 Medications Current Medications Medications (Trade) Dose Ordered Sig/Raisa Route PRN Reason Start Time Stop Time Status Last Admin Dose Admin Acetaminophen (Tylenol) 650 mg Q4H PRN ORAL fever 12/29/17 15:01 01/28/18 15:00 Al Hydroxide/Mg Hydroxide (Mylanta II) 30 ml Q6H PRN ORAL dyspepsia 12/29/17 15:02 01/28/18 15:01 Dextrose (Dextrose 50%) 25 ml Q30M PRN IV Hypoglycemia 12/29/17 15:02 01/28/18 15:01 Dextrose (Dextrose 50%) 50 ml Q30M PRN IV Hypoglycemia 12/29/17 15:02 01/28/18 15:01 Dextrose/Sodium Chloride 1,000 ml @ 50 mls/hr Q20H IV 12/30/17 11:00 01/28/18 10:59 Diphenhydramine HCl (Benadryl) 25 mg Q6H PRN ORAL Itching/Pruritis 12/29/17 15:02 01/28/18 15:01 Morphine Sulfate (Morphine Sulfate) 2 mg Q4H PRN IVP severe Pain (Pain Scale 7-10) 12/29/17 15:03 01/05/18 15:02 Nitroglycerin (Ntg) 0.4 mg Q5M X 3 DOSES PRN SL Prn Chest Pain 12/29/17 15:02 01/28/18 15:01 Ondansetron HCl (Zofran) 4 mg Q6H PRN IVP Nausea & Vomiting 12/29/17 15:01 01/28/18 15:00 Temazepam (Restoril) 15 mg HSPRN PRN ORAL Insomnia 12/29/17 21:00 01/05/18 20:59 Assessment/Plan Status: stable Assessment/Plan Anxiety d/o Restoril 15mg qhs/prn provided jessica/Rita George MD Dec 30, 2017 11:52
--- NOTE | 2017-12-30 11:56 | General Progress Note ---
Assessment/Plan Status: stable Assessment/Plan Anxiety d/o Restoril 15mg qhs/prn provided ro/st Subjective Date patient seen: Dec 30, 2017 Neurologic/Psychiatric: Reports: anxiety, depressed, emotional problems Allergies: Coded Allergies: NO KNOWN ALLERGIES (Unverified Allergy, Unknown, 12/13/14) Objective Last 24 Hour Vital Signs Date Time Temp Pulse Resp B/P (MAP) Pulse Ox O2 Delivery O2 Flow Rate FiO2 12/30/17 09:00 Room Air 12/30/17 08:00 97.0 75 20 108/66 (80) 94 97.0 12/30/17 04:12 98.2 78 17 92/54 (67) 96 98.2 12/29/17 23:50 98.2 101 17 100/69 (79) 96 98.2 12/29/17 21:37 Room Air 12/29/17 19:55 98.4 97 17 103/72 (82) 96 98.4 12/29/17 16:00 87 12/29/17 16:00 98.2 91 20 104/69 (81) 95 98.2 12/29/17 15:13 Room Air 12/29/17 14:45 98.1 18 109/72 98 Room Air 98.1 12/29/17 12:20 98.1 18 104/64 98 Room Air 98.1 12/29/17 12:04 98.1 93 18 104/64 98 Room Air 98.1 Intake and Output 12/29/17 12/30/17 19:00 07:00 Intake Total 300 ml 900 ml Balance 300 ml 900 ml Intake Oral 0 ml IV Total 300 ml 900 ml # Voids 1 2 Laboratory Tests 12/29/17 12:18: White Blood Count 6.0, Red Blood Count 4.68L, Hemoglobin 14.0L, Hematocrit 41.2L , Mean Corpuscular Volume 88, Mean Corpuscular Hemoglobin 29.9, Mean Corpuscular Hemoglobin Concent 33.9, Red Cell Distribution Width 11.0L, Platelet Count 225, Mean Platelet Volume 5.8L, Neutrophils (%) (Auto) 61.6, Lymphocytes (%) (Auto) 28.6, Monocytes (%) (Auto) 6.1, Eosinophils (%) (Auto) 2.7, Basophils (%) (Auto) 1.0, Prothrombin Time 12.5H, Prothromb Time International Ratio 1.2H, Activated Partial Thromboplast Time 32, Sodium Level 141, Potassium Level 3.9, Chloride Level 107, Carbon Dioxide Level 26, Anion Gap 8, Blood Urea Nitrogen 19H, Creatinine 1.3, Estimat Glomerular Filtration Rate , Glucose Level 150H, Calcium Level 8.9, Total Bilirubin 0.5, Aspartate Amino Transf (AST/SGOT) 17, Alanine Aminotransferase (ALT/SGPT) 22, Alkaline Phosphatase 60, Total Creatine Kinase 123, Creatine Kinase MB 2.7, Creatine Kinase MB Relative Index 2.1, Troponin I 0.017, Total Protein 7.2, Albumin 3.8, Globulin 3.4, Albumin/Globulin Ratio 1.1, Lipase 153 12/29/17 13:25: Urine Color Pale yellow, Urine Appearance Clear, Urine pH 5, Urine Specific [place] 1.015, Urine Protein Negative, Urine Glucose (UA) Negative, Urine Ketones Negative, Urine Blood 1+H, Urine Nitrite Negative, Urine Bilirubin Negative, Urine Urobilinogen Normal, Urine Leukocyte Esterase 1+H, Urine RBC 2- 4H, Urine WBC 2-4, Urine Squamous Epithelial Cells Occasional, Urine Bacteria Occasional 12/30/17 06:20: White Blood Count 4.8, Red Blood Count 3.53L, Hemoglobin 11.1L, Hematocrit 31.2L , Mean Corpuscular Volume 88, Mean Corpuscular Hemoglobin 31.4H, Mean Corpuscular Hemoglobin Concent 35.6, Red Cell Distribution Width 11.2L, Platelet Count 166, Mean Platelet Volume 5.8L, Neutrophils (%) (Auto) 51.6, Lymphocytes (%) (Auto) 33.0, Monocytes (%) (Auto) 8.0, Eosinophils (%) (Auto) 6.6H, Basophils (%) (Auto) 0.9, Prothrombin Time 11.5, Prothromb Time International Ratio 1.1, Activated Partial Thromboplast Time 28, Sodium Level 142, Potassium Level 4.0, Chloride Level 112H, Carbon Dioxide Level 23, Anion Gap 7, Blood Urea Nitrogen 20H, Creatinine 1.2, Estimat Glomerular Filtration Rate , Glucose Level 124H, Calcium Level 8.0L, Total Bilirubin 0.6, Aspartate Amino Transf (AST/SGOT) 13L, Alanine Aminotransferase (ALT/SGPT) 20, Alkaline Phosphatase 39L, Total Protein 5.4L, Albumin 2.8L, Globulin 2.6, Albumin/ Globulin Ratio 1.1, Lipase 98, Amylase Level 32 Height (Feet): 5 Height (Inches): 5.00 Weight (Pounds): 165 General Appearance: no apparent distress, alert Neurologic: oriented x 3, responsive, depressed affect Rita Rawls MD Dec 30, 2017 11:56
[2017-12-30 12:00] VITALS: BP 133/82
[2017-12-30] MEDS ORDERED: LORazepam 1mg tab ORAL PRN ×2 (12:00→18:00)
--- NOTE | 2017-12-30 13:50 | GI Initial Consult Note ---
History of Present Illness General Date patient seen: Dec 30, 2017 Time patient seen: 13:46 Reason for Hospitalization: Gastrointestinal Bleed Referring physician: DALE NOBLE Reason for Consultation: GI BLEED Present Illness HPI This patient presents at the request of his primary care physician. The patient states that he has had black colored stool for the past one week. He states that the stool is been black daily. He states he had this one time previously about 6 years ago. He was diagnosed with a duodenal ulcer. He denies epigastric pain or abdominal pain. He denies chest pain or shortness of breath. He is on Xarelto for a heart arrhythmia. He denies any other anticoagulation medications. He has no other complaints. GI consulted for GI bleed. Pt seen, awake A&Ox4 NAD with no active s/sx of N/V/ D. Reports melena and blood in stool. 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 No reported use of Xarelto today. Wants to be discharged. Home Meds Active Scripts Acetaminophen With Codeine (T#3) (TYLENOL #3 TAB*) 1 Each Tablet, 1 TAB ORAL Q8H PRN for For Pain, #20 TAB Prov:Portillo Echols MD 10/25/14 Reported Medications Rivaroxaban (XARELTO*) 10 Mg Tablet, 15 MG ORAL DAILY, #30 TAB 0 Refills 12/29/17 [BPH med] No Conflict Check, ORAL DAILY 12/29/17 Nebivolol Hcl* (BYSTOLIC*) 2.5 Mg Tablet, ORAL DAILY, TAB 12/29/17 Rivaroxaban (XARELTO*) 10 Mg Tablet, ORAL DAILY, #30 TAB 0 Refills 12/29/17 Med list reviewed/reconciled: Yes Allergies: Coded Allergies: NO KNOWN ALLERGIES (Unverified Allergy, Unknown, 12/13/14) Patient History History Provided By: Patient, Medical Record PMH Narrative Past Medical History: see triage record, HTN, AFib Past Surgical History: none Social History: Denies: smoking, alcohol use, drug use Reviewed Nursing Documentation: PMH: Agreed; PSxH: Agreed Nursing Documentation-PM Past Medical History: No History, Except For Hx Cardiac Problems: Yes - arrhythmia Hx Hypertension: Yes Social History: Denies: smoking, alcohol use, drug use, other Review of Systems All Other Systems: negative except mentioned in HPI Physical Exam Vital Signs Date Time Temp Pulse Resp B/P (MAP) Pulse Ox O2 Delivery O2 Flow Rate FiO2 12/29/17 12:04 98.1 93 18 104/64 98 Room Air 98.1 Sp02 EP Interpretation: reviewed, normal Labs Laboratory Tests Test 12/30/17 06:20 White Blood Count 4.8 K/UL (4.8-10.8) Red Blood Count 3.53 M/UL (4.70-6.10) L Hemoglobin 11.1 G/DL (14.2-18.0) L Hematocrit 31.2 % (42.0-52.0) L Mean Corpuscular Volume 88 FL (80-99) Mean Corpuscular Hemoglobin 31.4 PG (27.0-31.0) H Mean Corpuscular Hemoglobin Concent 35.6 G/DL (32.0-36.0) Red Cell Distribution Width 11.2 % (11.6-14.8) L Platelet Count 166 K/UL (150-450) Mean Platelet Volume 5.8 FL (6.5-10.1) L Neutrophils (%) (Auto) 51.6 % (45.0-75.0) Lymphocytes (%) (Auto) 33.0 % (20.0-45.0) Monocytes (%) (Auto) 8.0 % (1.0-10.0) Eosinophils (%) (Auto) 6.6 % (0.0-3.0) H Basophils (%) (Auto) 0.9 % (0.0-2.0) Prothrombin Time 11.5 SEC (9.30-11.50) Prothromb Time International Ratio 1.1 (0.9-1.1) Activated Partial Thromboplast Time 28 SEC (23-33) Sodium Level 142 MMOL/L (136-145) Potassium Level 4.0 MMOL/L (3.5-5.1) Chloride Level 112 MMOL/L (98-107) H Carbon Dioxide Level 23 MMOL/L (21-32) Anion Gap 7 mmol/L (5-15) Blood Urea Nitrogen 20 mg/dL (7-18) H Creatinine 1.2 MG/DL (0.55-1.30) Estimat Glomerular Filtration Rate mL/min (>60) Glucose Level 124 MG/DL (74-106) H Calcium Level 8.0 MG/DL (8.5-10.1) L Total Bilirubin 0.6 MG/DL (0.2-1.0) Aspartate Amino Transf (AST/SGOT) 13 U/L (15-37) L Alanine Aminotransferase (ALT/SGPT) 20 U/L (12-78) Alkaline Phosphatase 39 U/L (46-116) L Total Protein 5.4 G/DL (6.4-8.2) L Albumin 2.8 G/DL (3.4-5.0) L Globulin 2.6 g/dL Albumin/Globulin Ratio 1.1 (1.0-2.7) Amylase Level 32 U/L (25-115) Lipase 98 U/L (73-393) General Appearance: well appearing, no apparent distress, alert Head: normocephalic EENT: PERRL/EOMI, normal ENT inspection Neck: supple Respiratory: normal breath sounds, no respiratory distress Cardiovascular: normal rate Gastrointestinal: normal inspection, non tender, soft, normal bowel sounds, non -distended Rectal: deferred Genitourinary: deferred Musculoskeletal: normal inspection, back normal Neurologic: normal inspection, alert, oriented x3, responsive Psychiatric: normal inspection, judgement/insight normal, memory normal Skin: normal inspection, normal color, no rash, warm/dry, palpation normal, well hydrated Lymphatic: normal inspection, no adenopathy Current Medications Current Medications Medications (Trade) Dose Ordered Sig/Raisa Route PRN Reason Start Time Stop Time Status Last Admin Dose Admin Acetaminophen (Tylenol) 650 mg Q4H PRN ORAL fever 12/29/17 15:01 01/28/18 15:00 Al Hydroxide/Mg Hydroxide (Mylanta II) 30 ml Q6H PRN ORAL dyspepsia 12/29/17 15:02 01/28/18 15:01 Dextrose (Dextrose 50%) 25 ml Q30M PRN IV Hypoglycemia 12/29/17 15:02 01/28/18 15:01 Dextrose (Dextrose 50%) 50 ml Q30M PRN IV Hypoglycemia 12/29/17 15:02 01/28/18 15:01 Dextrose/Sodium Chloride 1,000 ml @ 50 mls/hr Q20H IV 12/30/17 11:00 01/28/18 10:59 Diphenhydramine HCl (Benadryl) 25 mg Q6H PRN ORAL Itching/Pruritis 12/29/17 15:02 01/28/18 15:01 Lorazepam (Ativan) 2 mg TIDPRN PRN ORAL anxiety 12/30/17 12:00 01/06/18 11:59 12/30/17 12:11 Morphine Sulfate (Morphine Sulfate) 2 mg Q4H PRN IVP severe Pain (Pain Scale 7-10) 12/29/17 15:03 01/05/18 15:02 Nitroglycerin (Ntg) 0.4 mg Q5M X 3 DOSES PRN SL Prn Chest Pain 12/29/17 15:02 01/28/18 15:01 Ondansetron HCl (Zofran) 4 mg Q6H PRN IVP Nausea & Vomiting 12/29/17 15:01 01/28/18 15:00 Temazepam (Restoril) 15 mg HSPRN PRN ORAL Insomnia 12/29/17 21:00 01/05/18 20:59 GI: Plan Problems: (1) GI bleed (2) UGI bleed (3) Melena Plan EGD/colonoscopy scheduled for tomorrow. - CLD now, NPO @ [facility]. - hold Xarelto prn transfusions ppi BID zofran prn fu labs will follow with additional recs after procedure Discussed with Dr. Redman. Thank you for this patient referral, we will follow. Ginger Jean I&C TECHNICIAN Dec 30, 2017 13:50
--- NOTE | 2017-12-30 14:12 | Cardiology Progress Note ---
Assessment/Plan Status: stable Assessment/Plan Assessment AFIB Melena Duodenal Ulcer Plan Hold xarelto Telemetry Serial neuro exam while off xarelto Defer cath/stress test GI consult for colonoscopy Stool for FOBT Serial H/H BID PPI Sucralfate NPO/IV fluids Cleared to proceed Subjective Cardiovascular: Reports: no symptoms Respiratory: Reports: no symptoms Gastrointestinal/Abdominal: Reports: no symptoms Genitourinary: Reports: no symptoms Subjective No acute events plan for scope tomorrow, Hemoglobin dropped, no indication for transfusion, vitals stable, no CP Objective Last 24 Hour Vital Signs Date Time Temp Pulse Resp B/P (MAP) Pulse Ox O2 Delivery O2 Flow Rate FiO2 12/30/17 12:00 97.6 85 20 133/82 (99) 97 97.6 12/30/17 09:00 Room Air 12/30/17 08:00 97.0 75 20 108/66 (80) 94 97.0 12/30/17 04:12 98.2 78 17 92/54 (67) 96 98.2 12/29/17 23:50 98.2 101 17 100/69 (79) 96 98.2 12/29/17 21:37 Room Air 12/29/17 19:55 98.4 97 17 103/72 (82) 96 98.4 12/29/17 16:00 87 12/29/17 16:00 98.2 91 20 104/69 (81) 95 98.2 12/29/17 15:13 Room Air 12/29/17 14:45 98.1 18 109/72 98 Room Air 98.1 General Appearance: no apparent distress, alert EENT: PERRL/EOMI, normal ENT inspection Neck: non-tender, normal alignment, supple Rhythm: NSR Cardiovascular: normal peripheral pulses, normal rate, regular rhythm Respiratory/Chest: chest wall non-tender, lungs clear, normal breath sounds, no respiratory distress Abdomen: normal bowel sounds, non tender Extremities: normal range of motion, non-tender Neurologic: brownell operator II-XII grossly normal, no motor/sensory deficits, alert, oriented x 3, responsive Intake and Output 12/29/17 12/30/17 19:00 07:00 Intake Total 300 ml 900 ml Balance 300 ml 900 ml Intake Oral 0 ml IV Total 300 ml 900 ml # Voids 1 2 Laboratory Tests Test 10/9/18 06:20 White Blood Count 4.8 K/UL (4.8-10.8) Red Blood Count 3.53 M/UL (4.70-6.10) L Hemoglobin 11.1 G/DL (14.2-18.0) L Hematocrit 31.2 % (42.0-52.0) L Mean Corpuscular Volume 88 FL (80-99) Mean Corpuscular Hemoglobin 31.4 PG (27.0-31.0) H Mean Corpuscular Hemoglobin Concent 35.6 G/DL (32.0-36.0) Red Cell Distribution Width 11.2 % (11.6-14.8) L Platelet Count 166 K/UL (150-450) Mean Platelet Volume 5.8 FL (6.5-10.1) L Neutrophils (%) (Auto) 51.6 % (45.0-75.0) Lymphocytes (%) (Auto) 33.0 % (20.0-45.0) Monocytes (%) (Auto) 8.0 % (1.0-10.0) Eosinophils (%) (Auto) 6.6 % (0.0-3.0) H Basophils (%) (Auto) 0.9 % (0.0-2.0) Prothrombin Time 11.5 SEC (9.30-11.50) Prothromb Time International Ratio 1.1 (0.9-1.1) Activated Partial Thromboplast Time 28 SEC (23-33) Sodium Level 142 MMOL/L (136-145) Potassium Level 4.0 MMOL/L (3.5-5.1) Chloride Level 112 MMOL/L (98-107) H Carbon Dioxide Level 23 MMOL/L (21-32) Anion Gap 7 mmol/L (5-15) Blood Urea Nitrogen 20 mg/dL (7-18) H Creatinine 1.2 MG/DL (0.55-1.30) Estimat Glomerular Filtration Rate mL/min (>60) Glucose Level 124 MG/DL (74-106) H Calcium Level 8.0 MG/DL (8.5-10.1) L Total Bilirubin 0.6 MG/DL (0.2-1.0) Aspartate Amino Transf (AST/SGOT) 13 U/L (15-37) L Alanine Aminotransferase (ALT/SGPT) 20 U/L (12-78) Alkaline Phosphatase 39 U/L (46-116) L Total Protein 5.4 G/DL (6.4-8.2) L Albumin 2.8 G/DL (3.4-5.0) L Globulin 2.6 g/dL Albumin/Globulin Ratio 1.1 (1.0-2.7) Amylase Level 32 U/L (25-115) Lipase 98 U/L (73-393) Shaen Blum MD Dec 30, 2017 14:11
[2017-12-30] MEDS ORDERED: Bisacodyl EC 5mg tab ORAL SCH (16:00)
[2017-12-30] MEDS ORDERED: Nulytely 4L ORAL SCH (16:00)
[2017-12-30] MEDS ORDERED: Morphine Sulfate 2mg/ml Inj IVP PRN (18:00)
[2017-12-30] MEDS ORDERED: Mylanta II UD 30ml ORAL PRN (18:00)
[2017-12-30] MEDS ORDERED: Nitroglycerin Subl 0.4mg tab SL PRN (18:00)
[2017-12-30 20:00] VITALS: BP 123/90
[2017-12-30] MEDS ORDERED: Fleet's Enema 133ml RECTAL ONE ×2 (23:00)
[2017-12-31] VITALS (8 sets, daily range): BP systolic 101–128; BP diastolic 56–85
[2017-12-31] MEDS ORDERED: Fleet's Enema 133ml RECTAL SCH (02:30)
--- NOTE | 2017-12-31 06:21 | Anethesia Preoperative Eval ---
Anesthesia Pre-op PMH/ROS General Date of Evaluation: Dec 31, 2017 Time of Evaluation: 06:18 Anesthesiologist: leah ASA Score: ASA 4 Mallampati Score Class I : Soft palate, uvula, fauces, pillars visible Class II: Soft palate, uvula, fauces visible Class III: Soft palate, base of uvula visible Class IV: Only hard plate visible Mallampati Classification: Class II Surgeon: sree Diagnosis: gi bleed Surgical Procedure: egd/colonoscopy Anesthesia History: none Social History: smoking - nonsmoker Family History: no anesthesia problems Allergies: Coded Allergies: NO KNOWN ALLERGIES (Unverified Allergy, Unknown, 12/13/14) Medications: see eMAR Patient NPO?: Yes NPO Date: Dec 31, 2017 NPO Time: 00:00 Past Medical History Cardiovascular: Reports: HTN, arrhythmia Gastrointestinal/Genitourinary: Reports: other - duodenal ulcer, melena Hematology/Immune: Reports: anemia Anesthesia Pre-op Phys. Exam Physician Exam Last Vital Signs Date Time Temp Pulse Resp B/P (MAP) Pulse Ox O2 Delivery O2 Flow Rate FiO2 12/31/17 04:00 97.7 85 20 106/67 (80) 94 97.7 12/30/17 21:00 Room Air Constitutional: NAD Neurologic: CN 2-12 intact Cardiovascular: RRR Respiratory: CTA Gastrointestinal: S/NT/ND Airway Exam Mallampati Score: Class II MO: limited Neck: supple TMD: 2fb ROM: limited Anesthesia Pre-op A/P Labs Hematology Test 12/30/17 06:20 White Blood Count 4.8 K/UL (4.8-10.8) Red Blood Count 3.53 M/UL (4.70-6.10) L Hemoglobin 11.1 G/DL (14.2-18.0) L Hematocrit 31.2 % (42.0-52.0) L Mean Corpuscular Volume 88 FL (80-99) Mean Corpuscular Hemoglobin 31.4 PG (27.0-31.0) H Mean Corpuscular Hemoglobin Concent 35.6 G/DL (32.0-36.0) Red Cell Distribution Width 11.2 % (11.6-14.8) L Platelet Count 166 K/UL (150-450) Mean Platelet Volume 5.8 FL (6.5-10.1) L Neutrophils (%) (Auto) 51.6 % (45.0-75.0) Lymphocytes (%) (Auto) 33.0 % (20.0-45.0) Monocytes (%) (Auto) 8.0 % (1.0-10.0) Eosinophils (%) (Auto) 6.6 % (0.0-3.0) H Basophils (%) (Auto) 0.9 % (0.0-2.0) Coagulation Test 12/30/17 06:20 Prothrombin Time 11.5 SEC (9.30-11.50) Prothromb Time International Ratio 1.1 (0.9-1.1) Activated Partial Thromboplast Time 28 SEC (23-33) Chemistry Test 12/30/17 06:20 Sodium Level 142 MMOL/L (136-145) Potassium Level 4.0 MMOL/L (3.5-5.1) Chloride Level 112 MMOL/L (98-107) H Carbon Dioxide Level 23 MMOL/L (21-32) Anion Gap 7 mmol/L (5-15) Blood Urea Nitrogen 20 mg/dL (7-18) H Creatinine 1.2 MG/DL (0.55-1.30) Estimat Glomerular Filtration Rate mL/min (>60) Glucose Level 124 MG/DL (74-106) H Calcium Level 8.0 MG/DL (8.5-10.1) L Total Bilirubin 0.6 MG/DL (0.2-1.0) Aspartate Amino Transf (AST/SGOT) 13 U/L (15-37) L Alanine Aminotransferase (ALT/SGPT) 20 U/L (12-78) Alkaline Phosphatase 39 U/L (46-116) L Total Protein 5.4 G/DL (6.4-8.2) L Albumin 2.8 G/DL (3.4-5.0) L Globulin 2.6 g/dL Albumin/Globulin Ratio 1.1 (1.0-2.7) Amylase Level 32 U/L (25-115) Lipase 98 U/L (73-393) Risk Assessment & Plan Assessment: asa4 Plan: mac Status Change Before Surgery: No Pre-Antibiotics Drug: aFye Kim MD Dec 31, 2017 06:21
[2017-12-31] MEDS ORDERED: Midazolam 2mg/2ml Inj IVP PRN (06:30)
[2017-12-31] MEDS ORDERED: DiphenhydrAMINE 50mg/ml Inj IVP PRN (06:30)
[2017-12-31] MEDS ORDERED: Propofol 200mg/20ml IV ONE (06:30)
[2017-12-31] MEDS ORDERED: fentaNYL 100 mcg/2 mL IV PRN (06:30)
[2017-12-31] MEDS ORDERED: Atropine Sulfate 0.4mg/ml inj ONE (06:30)
[2017-12-31] MEDS ORDERED: Lidocaine 1% MPF 10mg/ml 5ml ONE (06:30)
[2017-12-31] MEDS ORDERED: Atropine Inj 1mg/10ml Syr IV PRN (06:30)
--- NOTE | 2017-12-31 06:47 | Pre-Procedure Note/Attestation ---
Pre-Procedure Note/Attestation Complete Prior to Procedure Planned Procedure: not applicable Procedure Narrative: esophagogastroduodenoscopy and colonoscopy Indications for Procedure Pre-Operative Diagnosis: gib Attestation I attest that I discussed the nature of the procedure; its benefits; risks and complications; and alternatives (and the risks and benefits of such alternatives ), prior to the procedure, with the patient (or the patient's legal home office representative). I attest that, if there was a reasonable possibility of needing a blood transfusion, the patient (or the patient's legal home office representative) was given the [facility] standardized written summary, pursuant to the Basilio Ketan Blood Safety Act ([place] Health and Safety Code # 1645, as amended). I attest that I re-evaluated the patient just prior to the surgery and that there has been no change in the patient's H&P, except as documented below: Raymond Redman MD Dec 31, 2017 06:47
[2017-12-31] MEDS ORDERED: NS 500ML IVPB ONE (07:00)
[2017-12-31 07:02] LABS: BASOPHILS % (AUTO) 0.8 % (0.0-2.0); EOSINOPHILS % (AUTO) 4.9 % (0.0-3.0); HEMATOCRIT 37.4 % (42.0-52.0); HEMOGLOBIN 12.5 G/DL (14.2-18.0); LYMPHOCYTES % (AUTO) 35.4 % (20.0-45.0); MEAN CORPUSCULAR VOLUME 88 FL (80-99); MONOCYTES % (AUTO) 7.3 % (1.0-10.0); NEUTROPHILS % (AUTO) 51.5 % (45.0-75.0); PLATELET COUNT 200 K/UL (150-450); RED BLOOD COUNT 4.23 M/UL (4.70-6.10); RED CELL DISTRIBUTION WIDTH 11.1 % (11.6-14.8); WHITE BLOOD COUNT 6.4 K/UL (4.8-10.8)
[2017-12-31 07:08] LABS: INR 1.1 (0.9-1.1)
[2017-12-31 07:12] LABS: ALANINE AMINOTRANSFERASE 17 U/L (12-78); ALBUMIN 3.4 G/DL (3.4-5.0); ALBUMIN/GLOBULIN RATIO 1.1 (1.0-2.7); ALKALINE PHOSPHATASE 41 U/L (46-116); ANION GAP 6 mmol/L (5-15); ASPARTATE AMINO TRANSFERASE 17 U/L (15-37); BILIRUBIN,TOTAL 0.9 MG/DL (0.2-1.0); BLOOD UREA NITROGEN 18 mg/dL (7-18); CALCIUM 8.5 MG/DL (8.5-10.1); CARBON DIOXIDE 25 MMOL/L (21-32); CHLORIDE 108 MMOL/L (98-107); CREATININE 1.2 MG/DL (0.55-1.30); PHOSPHORUS 2.6 MG/DL (2.5-4.9); POTASSIUM 3.8 MMOL/L (3.5-5.1); SODIUM 139 MMOL/L (136-145)
--- NOTE | 2017-12-31 07:41 | Endoscopy Procedure Note ---
Endoscopy Procedure Note General Indication for Procedure: anemia Procedures Performed: EGD, colonoscopy Operative Findings/Diagnosis: gastritis, diverticulosis Specimen: yes Pt Tolerated Procedure Well: Yes Estimated Blood Loss: none Anesthesia Anesthesiologist: herbert Anesthesia: MAC Inserted Devices Implant(s) used?: No Quality Quality of Bowel Preparation: Good Did scope reach the cecum?: Yes Was there any complications?: No GI Core Measures 50 yrs or older w/o bx or poly: Not Applicable 10yrs. F/U not recommended: Not Applicable Raymond Redman MD Dec 31, 2017 07:41
--- NOTE | 2017-12-31 11:07 | Cardiology Progress Note ---
Assessment/Plan Status: stable Assessment/Plan Assessment AFIB Melena Duodenal Ulcer Plan Hold xarelto Telemetry Serial neuro exam while off xarelto Defer cath/stress test GI consult for colonoscopy Stool for FOBT Serial H/H BID PPI Sucralfate NPO/IV fluids Cleared to proceed Subjective Cardiovascular: Reports: no symptoms Respiratory: Reports: no symptoms Gastrointestinal/Abdominal: Reports: no symptoms Genitourinary: Reports: no symptoms Subjective Patient is non compliance and refused to drink prep. He is getting his scope today, he continued to have bloody stools overnight Objective Last 24 Hour Vital Signs Date Time Temp Pulse Resp B/P (MAP) Pulse Ox O2 Delivery O2 Flow Rate FiO2 12/31/17 08:14 97.8 77 23 107/71 98 Nasal Cannula 3 97.8 12/31/17 08:05 81 18 112/56 100 Nasal Cannula 3 12/31/17 08:00 Room Air 12/31/17 07:54 77 18 101/56 100 Nasal Cannula 3 12/31/17 07:49 74 18 107/68 98 Nasal Cannula 3 12/31/17 07:44 97.4 97 18 106/70 98 Nasal Cannula 3 97.4 12/31/17 04:00 97.7 85 20 106/67 (80) 94 97.7 12/31/17 00:00 97.7 84 20 113/68 (83) 96 97.7 12/30/17 21:00 Room Air 12/30/17 20:00 97.4 89 20 123/90 (101) 95 97.4 12/30/17 16:46 Room Air 12/30/17 12:00 97.6 85 20 133/82 (99) 97 97.6 General Appearance: no apparent distress, alert EENT: PERRL/EOMI, normal ENT inspection Neck: non-tender, normal alignment, supple, normal inspection, no JVD Rhythm: NSR Cardiovascular: normal peripheral pulses, normal rate, regular rhythm Respiratory/Chest: chest wall non-tender, lungs clear, normal breath sounds Abdomen: normal bowel sounds, non tender, soft, no organomegaly Extremities: normal range of motion, non-tender 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, no motor/sensory deficits, alert, oriented x 3, responsive Intake and Output 12/30/17 12/31/17 19:00 07:00 Intake Total 2250 ml 240 ml Balance 2250 ml 240 ml Intake Oral 2250 ml 240 ml # Voids 4 3 # Bowel Movements 1 4 Laboratory Tests Test 12/30/17 13:45 12/31/17 06:50 Stool Occult Blood Positive (NEGATIVE) White Blood Count 6.4 K/UL (4.8-10.8) Red Blood Count 4.23 M/UL (4.70-6.10) L Hemoglobin 12.5 G/DL (14.2-18.0) L Hematocrit 37.4 % (42.0-52.0) L Mean Corpuscular Volume 88 FL (80-99) Mean Corpuscular Hemoglobin 29.5 PG (27.0-31.0) Mean Corpuscular Hemoglobin Concent 33.4 G/DL (32.0-36.0) Red Cell Distribution Width 11.1 % (11.6-14.8) L Platelet Count 200 K/UL (150-450) Mean Platelet Volume 5.5 FL (6.5-10.1) L Neutrophils (%) (Auto) 51.5 % (45.0-75.0) Lymphocytes (%) (Auto) 35.4 % (20.0-45.0) Monocytes (%) (Auto) 7.3 % (1.0-10.0) Eosinophils (%) (Auto) 4.9 % (0.0-3.0) H Basophils (%) (Auto) 0.8 % (0.0-2.0) Prothrombin Time 11.2 SEC (9.30-11.50) Prothromb Time International Ratio 1.1 (0.9-1.1) Activated Partial Thromboplast Time 28 SEC (23-33) Sodium Level 139 MMOL/L (136-145) Potassium Level 3.8 MMOL/L (3.5-5.1) Chloride Level 108 MMOL/L (98-107) H Carbon Dioxide Level 25 MMOL/L (21-32) Anion Gap 6 mmol/L (5-15) Blood Urea Nitrogen 18 mg/dL (7-18) Creatinine 1.2 MG/DL (0.55-1.30) Estimat Glomerular Filtration Rate mL/min (>60) Glucose Level 98 MG/DL (74-106) Calcium Level 8.5 MG/DL (8.5-10.1) Phosphorus Level 2.6 MG/DL (2.5-4.9) Magnesium Level 1.9 MG/DL (1.8-2.4) Total Bilirubin 0.9 MG/DL (0.2-1.0) Aspartate Amino Transf (AST/SGOT) 17 U/L (15-37) Alanine Aminotransferase (ALT/SGPT) 17 U/L (12-78) Alkaline Phosphatase 41 U/L (46-116) L Total Protein 6.5 G/DL (6.4-8.2) Albumin 3.4 G/DL (3.4-5.0) Globulin 3.1 g/dL Albumin/Globulin Ratio 1.1 (1.0-2.7) Shane Blum MD Dec 31, 2017 11:07
--- NOTE | 2017-12-31 12:08 | Pulmonology Progress Note ---
Assessment/Plan Problems: (1) Melena (2) Chronic anticoagulation (3) Arrhythmia Assessment/Plan upper and lower endoscopy was negative for any acute bleeding Cardio note appreciated GI evaluation h2 blockers prbc prn dc home with close f/u by his primary, Dr. Stoll Subjective ROS Limited/Unobtainable: No Constitutional: Reports: no symptoms Respiratory: Reports: no symptoms Allergies: Coded Allergies: NO KNOWN ALLERGIES (Unverified Allergy, Unknown, 12/13/14) Objective Last 24 Hour Vital Signs Date Time Temp Pulse Resp B/P (MAP) Pulse Ox O2 Delivery O2 Flow Rate FiO2 12/31/17 11:45 96.8 103 15 128/85 (99) 97 96.8 12/31/17 08:14 97.8 77 23 107/71 98 Nasal Cannula 3 97.8 12/31/17 08:05 81 18 112/56 100 Nasal Cannula 3 12/31/17 08:00 Room Air 12/31/17 07:54 77 18 101/56 100 Nasal Cannula 3 12/31/17 07:49 74 18 107/68 98 Nasal Cannula 3 12/31/17 07:44 97.4 97 18 106/70 98 Nasal Cannula 3 97.4 12/31/17 04:00 97.7 85 20 106/67 (80) 94 97.7 12/31/17 00:00 97.7 84 20 113/68 (83) 96 97.7 12/30/17 21:00 Room Air 12/30/17 20:00 97.4 89 20 123/90 (101) 95 97.4 12/30/17 16:46 Room Air Intake and Output 12/30/17 12/31/17 19:00 07:00 Intake Total 2250 ml 240 ml Balance 2250 ml 240 ml Intake Oral 2250 ml 240 ml # Voids 4 3 # Bowel Movements 1 4 General Appearance: WD/WN HEENT: normocephalic, atraumatic Respiratory/Chest: chest wall non-tender, lungs clear Cardiovascular: normal peripheral pulses, normal rate Abdomen: normal bowel sounds, no organomegaly Skin: no rash, no lesions Laboratory Tests 12/30/17 13:45: Stool Occult Blood Positive 12/31/17 06:50: White Blood Count 6.4, Red Blood Count 4.23L, Hemoglobin 12.5L, Hematocrit 37.4L , Mean Corpuscular Volume 88, Mean Corpuscular Hemoglobin 29.5, Mean Corpuscular Hemoglobin Concent 33.4, Red Cell Distribution Width 11.1L, Platelet Count 200, Mean Platelet Volume 5.5L, Neutrophils (%) (Auto) 51.5, Lymphocytes (%) (Auto) 35.4, Monocytes (%) (Auto) 7.3, Eosinophils (%) (Auto) 4.9H, Basophils (%) (Auto) 0.8, Prothrombin Time 11.2, Prothromb Time International Ratio 1.1, Activated Partial Thromboplast Time 28, Sodium Level 139, Potassium Level 3.8, Chloride Level 108H, Carbon Dioxide Level 25, Anion Gap 6, Blood Urea Nitrogen 18, Creatinine 1.2, Estimat Glomerular Filtration Rate , Glucose Level 98, Calcium Level 8.5, Phosphorus Level 2.6, Magnesium Level 1.9, Total Bilirubin 0.9, Aspartate Amino Transf (AST/SGOT) 17, Alanine Aminotransferase (ALT/SGPT) 17, Alkaline Phosphatase 41L, Total Protein 6.5, Albumin 3.4, Globulin 3.1, Albumin/Globulin Ratio 1.1 Current Medications Medications (Trade) Dose Ordered Sig/Raisa Route PRN Reason Start Time Stop Time Status Last Admin Dose Admin Acetaminophen (Tylenol) 650 mg Q4H PRN ORAL fever 12/30/17 18:00 01/28/18 17:59 Al Hydroxide/Mg Hydroxide (Mylanta II) 30 ml Q6H PRN ORAL dyspepsia 12/30/17 18:00 01/28/18 17:59 Al Hydroxide/Mg Hydroxide (Mylanta) 15 ml Q1H PRN ORAL gi upset 12/31/17 06:30 12/31/17 15:00 Atropine Sulfate (Atropine) 0.5 mg Q5M PRN IV bpm less than 45 12/31/17 06:30 12/31/17 15:00 Dextrose (Dextrose 50%) 25 ml Q30M PRN IV Hypoglycemia 12/30/17 18:00 01/28/18 17:59 Dextrose (Dextrose 50%) 50 ml Q30M PRN IV Hypoglycemia 12/30/17 18:00 01/28/18 17:59 Dextrose/Sodium Chloride 1,000 ml @ 50 mls/hr Q20H IV 12/30/17 18:00 01/28/18 17:59 Diphenhydramine HCl (Benadryl) 25 mg Q15M PRN IVP Itching 12/31/17 06:30 12/31/17 15:00 Diphenhydramine HCl (Benadryl) 25 mg Q6H PRN ORAL Itching/Pruritis 12/30/17 18:00 01/28/18 17:59 Fentanyl Citrate (Sublimaze 100 mcg/2 mL) 25 mcg Q10M PRN IV Moderate Pain (Pain Scale 4-6) 12/31/17 06:30 12/31/17 15:00 Hydralazine HCl (Apresoline) 5 mg Q30M PRN IV SBP>160 OR___/DBP>90 OR___ 12/31/17 06:30 12/31/17 15:00 Lorazepam (Ativan) 2 mg TIDPRN PRN ORAL anxiety 12/30/17 18:00 01/06/18 17:59 Midazolam HCl (Versed 2mg/2ml vial) 1 mg Q15M PRN IVP For Anxiety 12/31/17 06:30 12/31/17 15:00 Morphine Sulfate (Morphine Sulfate) 2 mg Q4H PRN IVP severe Pain (Pain Scale 7-10) 12/30/17 18:00 01/05/18 17:59 Nitroglycerin (Ntg) 0.4 mg Q5M PRN SL Prn Chest Pain 12/30/17 18:00 01/29/18 17:59 Ondansetron HCl (Zofran) 4 mg Q1H PRN IVP Nausea & Vomiting 12/31/17 06:30 12/31/17 15:00 Ondansetron HCl (Zofran) 4 mg Q6H PRN IVP Nausea & Vomiting 12/30/17 18:00 01/28/18 17:59 Sodium Chloride 1,000 ml @ 10 mls/hr Q24H IVLG 12/31/17 06:16 12/31/17 15:00 Temazepam (Restoril) 15 mg HSPRN PRN ORAL Insomnia 12/30/17 21:00 01/05/18 20:59 Jordy Springer MD Dec 31, 2017 12:08
--- NOTE | 2017-12-31 15:03 | Diagnostic Imaging Report ---
APPROVED REPORT CPT Code: 45283 Present Symptoms Comments: BILATERAL LEGS PAIN. BILATERAL: Imaging reveals a patent deep venous system bilaterally. There is no evidence of thrombus within the femoral, popliteal or tibial segments. The greater saphenous veins are also within normal limits. Doppler indicates normal spontaneous flow within these segments.
--- NOTE | 2017-12-31 15:26 | Cardiology Report ---
APPROVED REPORT EKG Measurement Heart [id number] Atrial fibrillation Low voltage QRS Abnormal ECG
--- NOTE | 2017-12-31 16:45 | Procedure Note ---
DATE OF PROCEDURE: 12/31/2017 SURGEON: Raymond Redman M.D. ANESTHESIOLOGIST: Dr. Barnard. REFERRING PHYSICIAN: Jordy Springer M.D. PROCEDURE: Upper endoscopy with biopsy and colonoscopy with biopsy. ANESTHESIA: Per Dr. Barnard. INSTRUMENT: Olympus adult flexible upper endoscope and colonoscope. INDICATION: GI bleeding. The procedure, risks, benefits, and possible consequences, including hemorrhage, aspiration, perforation and infection, and alternative treatments, were explained to the patient/legal guardian by Dr. Raymond Redman and the patient/legal guardian understood and accepted these risks. DESCRIPTION OF PROCEDURE: After informed consent was obtained and the patient was adequately sedated, Olympus upper endoscope was advanced from the mouth into the second portion of duodenum and retroflexion was performed in the stomach. The patient had evidence of diffuse distal esophagitis, questionable for May esophagus. Biopsy from distal esophagus was obtained. In the stomach, there was diffuse gastritis. Random biopsy from antrum was obtained to rule out H. pylori infection. The rest of the examination grossly looked within normal limits. At this time, the upper endoscope was retrieved. The patient was turned over for colonoscopy. First rectal exam was performed which showed evidence of hypotensive rectal tone. Then, the scope from the rectum to the cecum and subsequently to terminal ileum. Quality of prep was good. The patient had significant diverticulosis throughout the colon, of course right more than left. There was no evidence of any active bleeding at this time. No evidence of any ulceration or polyp. The patient had a very large what looked like a submucosal lesion in the proximal ascending colon. It looked like a lipoma. Positive pillow sign. Biopsy from this lesion was obtained. The rest of the examination grossly looked within normal limits. SUMMARY OF FINDINGS: 1. Distal esophagitis, questionable May's, status post biopsy. 2. Gastritis, status post biopsy. 3. Ascending colon lipoma, status post biopsy. 4. Significant diverticulosis. 5. Weak rectal tone. RECOMMENDATIONS: 1. Follow up biopsy results and treat accordingly. 2. The patient will benefit from outpatient capsule endoscopy to rule out any other source of GI bleeding. I want to thank Dr. Springer for this referral. Raymond Jackie Redman DR: Ted JOB#: [id number] CC: Jordy Springer M.D.; Fax#: [phone]
--- NOTE | 2017-12-31 23:41 | General Progress Note ---
Assessment/Plan Status: stable, progressing Assessment/Plan Anxiety d/o Restoril 15mg qhs/prn provided ro/st Subjective Neurologic/Psychiatric: Reports: anxiety, depressed, emotional problems Allergies: Coded Allergies: NO KNOWN ALLERGIES (Unverified Allergy, Unknown, 12/13/14) Objective Last 24 Hour Vital Signs Date Time Temp Pulse Resp B/P (MAP) Pulse Ox O2 Delivery O2 Flow Rate FiO2 12/31/17 11:45 96.8 103 15 128/85 (99) 97 96.8 12/31/17 08:14 97.8 77 23 107/71 98 Nasal Cannula 3 97.8 12/31/17 08:05 81 18 112/56 100 Nasal Cannula 3 12/31/17 08:00 Room Air 12/31/17 07:54 77 18 101/56 100 Nasal Cannula 3 12/31/17 07:49 74 18 107/68 98 Nasal Cannula 3 12/31/17 07:44 97.4 97 18 106/70 98 Nasal Cannula 3 97.4 12/31/17 04:00 97.7 85 20 106/67 (80) 94 97.7 12/31/17 00:00 97.7 84 20 113/68 (83) 96 97.7 Intake and Output 12/30/17 12/31/17 19:00 07:00 Intake Total 2250 ml 240 ml Balance 2250 ml 240 ml Intake Oral 2250 ml 240 ml # Voids 4 3 # Bowel Movements 1 4 Laboratory Tests 12/31/17 06:50: White Blood Count 6.4, Red Blood Count 4.23L, Hemoglobin 12.5L, Hematocrit 37.4L , Mean Corpuscular Volume 88, Mean Corpuscular Hemoglobin 29.5, Mean Corpuscular Hemoglobin Concent 33.4, Red Cell Distribution Width 11.1L, Platelet Count 200, Mean Platelet Volume 5.5L, Neutrophils (%) (Auto) 51.5, Lymphocytes (%) (Auto) 35.4, Monocytes (%) (Auto) 7.3, Eosinophils (%) (Auto) 4.9H, Basophils (%) (Auto) 0.8, Prothrombin Time 11.2, Prothromb Time International Ratio 1.1, Activated Partial Thromboplast Time 28, Sodium Level 139, Potassium Level 3.8, Chloride Level 108H, Carbon Dioxide Level 25, Anion Gap 6, Blood Urea Nitrogen 18, Creatinine 1.2, Estimat Glomerular Filtration Rate , Glucose Level 98, Calcium Level 8.5, Phosphorus Level 2.6, Magnesium Level 1.9, Total Bilirubin 0.9, Aspartate Amino Transf (AST/SGOT) 17, Alanine Aminotransferase (ALT/SGPT) 17, Alkaline Phosphatase 41L, Total Protein 6.5, Albumin 3.4, Globulin 3.1, Albumin/Globulin Ratio 1.1 Height (Feet): 5 Height (Inches): 5.00 Weight (Pounds): 165 General Appearance: no apparent distress, alert Neurologic: oriented x 3, responsive, depressed affect Rita Rawls MD Dec 31, 2017 23:41
--- NOTE | 2018-01-01 07:11 | Discharge Summary ---
Discharge Summary Discharge Summary _ DATE OF ADMISSION: 12/29/2017 DATE OF DISCHARGE: 12/31/2017 CONSULTANTS: Dr. Raymond Blum BRIEF HOSPITAL COURSE: Patient is an 87-year-old male, with history of atrial fibrillation, on chronic anticoagulation, presented to ER at the request of his primary physician. The patient was complaining of black colored stool for the past week. Stools have been black daily. He had a similar episode about 6 years ago when he was diagnosed with duodenal ulcer. He denied any epigastric or abdominal pain. He denied chest pain or shortness of breath. On evaluation at ED, vital signs were stable. Blood pressure was 104/64. Blood work showed hemoglobin of 14 and hematocrit 41. INR 1.2, PT 12.5, PTT 32. He had an EKG that showed atrial fibrillation with no acute changes. Due to being on Xarelto, patient was admitted for further evaluation by gastroenterology. He was given Protonix bolus IV and was started on Protonix drip. He was admitted to telemetry. He was placed on npo. He was given vitamin K and Amicar. He was given H2 blockers. He underwent cardiac evaluation. Xarelto was placed on hold. Heart rhythm was monitored while on telemetry. Patient has history of anxiety disorder and insomnia. He was seen by psychiatrist. Patient was continued on Restoril. He was seen by GI specialist. Stool OB positive. Protonix drip was discontinued. He was placed on proton pump inhibitors twice a day. On 2017 he underwent EGD with colonoscopy. Findings showed distal esophagitis, questionable May's, status post biopsy; gastritis, status post biopsy; ascending colon lipoma, status post biopsy; significant diverticulosis and weak rectal tone. Diet was advanced. Upper and lower endoscopy was negative for acute bleed. Patient was eventually discharged cleared for discharge home to follow-up with his primary doctor, . He was advised to follow-up with GI for a possible capsule endoscopy. Vital signs were stable. Hemoglobin and hematocrit stable. He was then cleared for discharge home. FINAL DIAGNOSES: GI bleed Atrial fibrillation on anticoagulation Melena Distal esophagitis Gastritis Diverticulosis Ascending colon lipoma History of duodenal ulcer Anxiety disorder DISPOSITION: Patient was discharged home. DISCHARGE MEDICATIONS: Refer to Discharge Medication List. DISCHARGE INSTRUCTIONS: Follow up with PCP in a week. I have been assigned to dictate discharge summary on this account, and I was not involved in the patient's management. Anna Fraga NP Jan 01, 2018 07:11
--- NOTE | 2018-01-01 10:30 | Immediate Post-Op Evaluation ---
Immediate Post-Op Evalulation Immediate Post-Op Evalulation Procedure: egd/colonoscopy/bx Date of Evaluation: Dec 31, 2017 IV Fluids: 0.9ns Blood Products: none Estimated Blood Loss: negligible Blood Pressure Systolic: 106 Blood Pressure Diastolic: 70 Pulse Rate: 97 Respiratory Rate: 18 O2 Sat by Pulse Oximetry: 100 Temperature (Fahrenheit): 97.4 Pain Score (1-10): 0 Nausea: No Vomiting: No Complications none Patient Status: awake, reacts, patent Hydration Status: adequate Drug: Faye Kim MD Jan 01, 2018 10:30
[2018-01-01 10:35] VITALS: BP 107/71
--- NOTE | 2018-01-01 10:35 | 48 Hour Post Anesthesia Eval ---
Post Anesthesia Evaluation Procedure: egd/colonoscopy/bx Date of Evaluation: Dec 31, 2017 Time of Evaluation: 08:00 Blood Pressure Systolic: 107 0: 71 Pulse Rate: 77 Respiratory Rate: 18 Temperature (Fahrenheit): 97.8 O2 Sat by Pulse Oximetry: 100 Airway: patent Nausea: No Vomiting: No Pain Intensity: 0 Hydration Status: adequate Cardiopulmonary Status: stable Mental Status/LOC: patient returned to baseline Post-Anesthesia Complications: none Follow-up care needed: N/A Faye Pavon MD Jan 01, 2018 10:35
== END 2017-12-31 13:40 | disposition home or self-care (01) | DRG 379 ==
LOC: EMR 12:45 → 2E 13:30 → EDBEDREQ 13:42 → 2E 20:32 → 4E 12-30 16:39
PROC: 0DBK8ZX Excision of Ascending Colon, Via Natural or Artificial Opening Endoscopic, Diagnostic (ICD-10-PCS; principal; 2017-12-31 07:23)
PROC: 0DB78ZX Excision of Stomach, Pylorus, Via Natural or Artificial Opening Endoscopic, Diagnostic (ICD-10-PCS; principal; 2017-12-31 07:23)
DX: K92.2 Gastrointestinal hemorrhage, unspecified (principal); I48.91 Unspecified atrial fibrillation; D17.79 Benign lipomatous neoplasm of other sites; Z79.01 Long term (current) use of anticoagulants; F41.9 Anxiety disorder, unspecified; G47.00 Insomnia, unspecified; K20.9 Esophagitis, unspecified; K29.70 Gastritis, unspecified, without bleeding; K57.90 Diverticulosis of intestine, part unspecified, without perforation or abscess without bleeding
CPT/HCPCS: 36415; 80053; 81003; 82150; 82270; 82550; 82553; 83690; 83735; 84100; 84484; 85025; 85610; 85730; 86850; 86900; 86901; 93005; 93970; 94003; 94150; 96374; 99285